=== PATIENT | male | born 1950 | race Caucasian/White ===

== ENCOUNTER 2020-05-10 23:25 | Emergency (ER) | payer SELFPAY ==
[~2020-05-10 23:25] MED LIST: EPINEPHrine 1 MG/10 ML Abboject SYRINGE ONE; Sodium Bicarb 50 MEQ/50 ML Abboject 8.4% SYRINGE ONE
[2020-05-10] MEDS ORDERED: Ondansetron ODT 4 MG TAB ONE (23:46)
[2020-05-11 00:14] LABS: INR-International Normal Ratio 1.1; Prothrombin Time 14.8 sec (12.0-14.7)
[2020-05-11 00:15] LABS: PTT 32.9 sec (22.9-36.1)
[2020-05-11 00:17] LABS: Hemoglobin 13.5 g/dL (14.0-18.0); Mean Corpuscular HGB CONC 32.6 g/dL (32.0-36.0); Mean Corpuscular Hemoglobin 31.7 pg (27.0-31.0); Mean Corpuscular Volume 97.4 fL (78.0-98.0); Mean Platelet Volume 12.7 fL (7.4-10.4); Platelet Count 151 thou/uL (130-400); RBC Distribution Width 12.5 % (11.5-14.5); Red Blood Cell (RBC) Count 4.27 mill/uL (4.70-6.10); White Blood Cell (WBC) Count 19.9 thou/uL (4.8-10.8)
[2020-05-11 00:22] LABS: #Basophils 0.2 thou/uL (0.0-0.2); #Eosinphils 0.3 thou/uL (0.0-0.7); #Lymphocytes 4.1 thou/uL (1.20-3.40); #Neutrophils 14.3 thou/uL (1.40-6.50); %Basophils 0.9 % (0.0-1.0); %Eosinophils 1.7 % (0.0-10.0); %Lymphocytes 20.6 % (21.0-51.0); %Neutrophils 71.8 % (42.0-75.0); MDiff Complete? YES
[2020-05-11 00:23] LABS: Large Platelets SLIGHT; Platelet Morphology Comment Appears Adequate; RBC Morphology Normal
[2020-05-11 00:35] LABS: ALT (SGPT) 17 U/L (8-55); AST (SGOT) 20 U/L (5-34); Albumin 3.5 g/dL (3.4-4.8); Alkaline Phosphatase 60 U/L (40-110); Anion Gap 17 mmol/L (10-20); BUN (Urea Nitrogen) 20 mg/dL (8.4-25.7); Bilirubin, Total 0.4 mg/dL (0.2-1.2); CK (CPK) 123 U/L (30-200); Calc. Creatinine Clearance 0 mL/min (70-130); Calcium 8.2 mg/dL (7.8-10.44); Carbon Dioxide 20 mmol/L (23-31); Chloride 108 mmol/L (98-107); Estimated GFR-MDRD 33; Globulin 2.5 g/dL (2.4-3.5); Glucose 214 mg/dL (80-115); Potassium 4.5 mmol/L (3.5-5.1); Sodium 140 mmol/L (136-145)
[2020-05-11] MEDS ORDERED: Sodium Chloride 0.9% 250 ML 250 ML ONE (00:48)
[2020-05-11] MEDS ORDERED: Sodium Chloride 0.9% 3,000 ML ONE (06:44)
--- NOTE | 2020-05-11 10:12 | CT ---
PRELIMINARY REPORT/[facility]/EMERGENCY AFTER HOURS PROCEDURE: This report was discussed with VERN BECKMAN by Meron Colon on May 11, 2020 00:46:00 CDT. Addendum electronically signed by Meron Colon on May 11, 2020 12:46:09 AM CDT EXAM: CT Abdomen and Pelvis Without Intravenous Contrast CLINICAL HISTORY: SUDDEN ONSET OF SEVERE BACK PAIN, STARTED TONIGHT WHEN PT WENT TO URINATE SITTING O N TOILET; ORDERED A STONE STUDY TECHNIQUE: Axial computed tomography images of the abdomen and pelvis without intravenous contrast. CONTRAST: None. COMPARISON: None provided. FINDINGS: LUNG BASES: No basilar airspace consolidation or pleural effusion. Centrilobular eczematous changes. LIVER: Unremarkable. GALLBLADDER AND BILE DUCTS: Unremarkable. No calcified stone. No ductal dilation. PANCREAS: Unremarkable. SPLEEN: Unremarkable. ADRENAL GLANDS: Unremarkable. KIDNEYS, URETERS, AND BLADDER: Unremarkable. No hydronephrosis or nephrolithiasis. No ureteral or bg dder calculi. Diffuse bladder wall thickening. STOMACH AND BOWEL: No obstruction. No wall thickening. No CT evidence of colitis or acute diverticuli tis. Colonic diverticulosis. APPENDIX: No CT evidence for appendicitis. PERITONEUM: No free fluid. No free air. LYMPH NODES: No lymphadenopathy. REPRODUCTIVE: The prostate gland is enlarged. The seminal vesicles are normal. VASCULATURE: Infrarenal abdominal aortic aneurysm with atherosclerosis measuring 8.3 x 7.9 cm. There is adjacent significant amount of blood in the retroperitoneum, worse on the right side. ABDOMINAL WALL AND SOFT TISSUES: Left inguinal hernia with a small amount of fluid in the hernia sac. BONES: No fracture or suspicious osseous abnormality. Multilevel degenerative disc disease. Osteoar thritis of the bilateral hips and SI joints. IMPRESSION: Large infrarenal abdominal aortic aneurysm with findings concerning for a ruptured aneury sm including a significant amount of blood in the retroperitoneum, worse on the right side. Left ingu inal hernia with fluid in the hernia sac. Colonic diverticulosis with no evidence of diverticulitis. ELECTRONICALLY SIGNED BY: Kalen Farrell MD May 11, 2020 12:41:38 AM CDT FINAL REPORT EMERGENT AFTER HOURS CT ABDOMEN AND PELVIS PERFORMED WITHOUT CONTRAST ENHANCEMENT: HISTORY: Severe back pain that started earlier tonight. FINDINGS: The lung bases show some emphysematous-type change. The liver, spleen, pancreas, and gallbladder regions appear unremarkable. Right and left adrenal glands and right and left kidneys are normal in size. There is a huge infrare nal abdominal aortic aneurysm. This measures approximately 8 cm in AP dimension. It shows evidence of extensive retroperitoneal hemorrhage which extends more along the right psoas muscle. Aneurysm ex tends to the bifurcation. 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 Diverticulosis of the colon incidentally noted. IMPRESSION: 1. An 8 cm infrarenal abdominal aortic aneurysm with evidence of rupture with extensive retroperiton eal blood. 2. Colonic diverticulosis. 3. Fat-containing left inguinal hernia. There appears to be fluid within the hernia sac, although t his may represent testicle. 4. This report is in agreement with the temporary report issued by [facility]. POS: OFF
== END 2020-05-11 03:05 | disposition expired ==
LOC: NAV ERS 23:25
DX: I71.3 Abdominal aortic aneurysm, ruptured (principal); F17.210 Nicotine dependence, cigarettes, uncomplicated
CPT/HCPCS: 36430; 74176; 80053; 82550; 84484; 85025; 85610; 85730; 86850; 86900; 86901; 92950; 93005; 94760; 96361; 96374; 96375; J0171; J7050; P9016; Q0162